=== PATIENT | female | born 1960 | race Caucasian/White ===

== ENCOUNTER → 2020-04-16 | Day surgery (SDC) | payer BC ==
[2020-04-14 12:05] VITALS: BMI 22.3
[~2020-04-16] MED LIST: LACTATED RINGERS 1,000 ML IV SCH; LIDOCAINE 1% (10MG/ML) FOR IV START INTRADERMA ONE; PROPOFOL 10 MG/ML 20 ML VIAL IV ONE
[2020-04-16 12:07] VITALS: TEMP 98.5
--- NOTE | 2020-04-16 13:23 | P.PCN ---
Date of Procedure: 04/16/20 Procedure(s) Performed: BRIEF HISTORY: Patient is a 59-year-old pleasant female scheduled for an elective colonoscopy as a part of value should change in bowel habits. She is been having frequent bowel movements cramping lower abdominal pain since January of last year. PROCEDURE PERFORMED: Incomplete colonoscopy with biopsy and snare polyp rectum PREOPERATIVE DIAGNOSIS: Change in bowel habits with lower abdominal pain. IV sedation per Anesthesia. PROCEDURE: After informed consent was obtained, the patient, was brought into the endoscopy unit. IV sedation was administered by Anesthesia under continuous monitoring. Digital rectal examination was normal. Initially the Olympus CF-160 flexible video colonoscope was then inserted in the rectum, gradually advanced into the rectosigmoid colon and at 18 cm from the anal verge there was a circumferential near obstructing ulcerated mass noted. The scope was removed and a pediatric colonoscope was then passed into the rectum and despite multiple attempts I was not able to pass the scope through the mass because of significant luminal narrowing. At this time multiple biopsies were done from the mass. In the rectum there was a 5 mm and 7 mm distal rectal polyps noted which were removed by snare polypectomy. Retroflexion was performed in the rectum and internal hemorrhoids were seen. The patient tolerated the procedure well. IMPRESSION: Near obstructing circumferential ulcerated rectosigmoid mass at 18 cm from the anal verge status post multiple biopsies 5 mm and 7 mm distal rectal polyp status post polypectomy Scope could not be advanced through the ulcerated mass RECOMMENDATIONS: Findings of this examination were discussed with the patient is well as her family. She was advised to follow with the biopsy results. She'll be seen in office in one week. She will be scheduled for CT of abdomen and pelvis early next week...
[2020-04-16 13:27] VITALS: RESP 17
[2020-04-16 13:42] VITALS: BP 163/74; PULSE 84
== END ==
LOC: ORWHC2ENDO 11:35
PROVIDERS: ATTEND Internal Medicine Gastroenterology
DX: C19 Malignant neoplasm of rectosigmoid junction (principal); D12.8 Benign neoplasm of rectum; K63.9 Disease of intestine, unspecified; K63.3 Ulcer of intestine; I10 Essential (primary) hypertension; Z88.2 Allergy status to sulfonamides; Z79.899 Other long term (current) drug therapy; Z91.040 Latex allergy status; Z87.891 Personal history of nicotine dependence; Z87.898 Personal history of other specified conditions
CPT/HCPCS: 45338; 45331; 88305; J2704; 45380; 45385

== ENCOUNTER → 2020-04-19 | Outpatient (CLI) | payer BC ==
--- NOTE | 2020-04-19 10:06 | CT ---
EXAMINATION TYPE: CT abdomen pelvis w con DATE OF EXAM: 04/19/2020 HISTORY: Recto-sigmoid mass, presumed abnormal colonoscopy. CT DLP: 351.80mGycm Automated Exposure Control for Dose Reduction was Utilized. CONTRAST: CT scan of the abdomen and pelvis is performed with oral and with IV Contrast, patient injected with 100 ml mL of Isovue 300. COMPARISON: None. FINDINGS: LUNG BASES: No significant abnormality is appreciated. LIVER/GB: Intraluminal gallstones are present. No surrounding inflammatory change. Mild hepatomegaly. PANCREAS: No significant abnormality is seen. SPLEEN: No significant abnormality is seen. ADRENALS: No significant abnormality is seen. KIDNEYS: Symmetric cortical medullary uptake and excretion without hydronephrosis seen bilaterally. L eft-sided simple-appearing Central parapelvic cysts are noted. BOWEL: Oral contrast reaches the transverse colon level. No suspicious small or large bowel dilatatio n. There is moderate to severe concentric wall thickening with irregular mucosal heterogeneity or enh ancement involving sigmoid rectal junction and distal sigmoid colon seen best coronal image 52 for re ference. Some adjacent prominent but tiny lymph nodes are noted for reference 6 mm lymph node left as pect axial image 51. Length of neoplasm may be up to 9 cm. No significant proximal dilatation or obst ruction. Patient has little intra-abdominal fat. Nonopacified bowel loop left periaortic region is fe lt present UTERUS/ADNEXA: Anteverted uterus . There is 3.6 x 3.5 cm round well-circumscribed low dense lesion le ft pelvis collection is 59 presumed simple thin-walled ovarian cyst. LYMPH NODES: No greater than 1cm abdominal or pelvic lymph nodes are appreciated. OSSEOUS STRUCTURES: Moderate disc space narrowing with vacuum disc phenomenon L5-S1 level. OTHER: Mild calcified plaque of the aorta extends into branch vessels. IMPRESSION: 1. Visualization of known neoplasm sigmoid rectal junction with involvement of the distal sigmoid col on. Few adjacent suspicious subcentimeter lymph nodes. No CT evidence for metastatic disease. 2. There is 3.6 cm low dense left pelvic lesion probable ovarian cyst or cystic lesion, follow-up pel minnie ultrasound advised to further evaluate. Lesion not noted on February 15, 2015 pelvic ultrasound re port
== END | disposition home or self-care (01) ==
LOC: RADCTMAIN 07:57
PROVIDERS: ATTEND Internal Medicine Gastroenterology
DX: D49.0 Neoplasm of unspecified behavior of digestive system (principal); N94.89 Other specified conditions associated with female genital organs and menstrual cycle
CPT/HCPCS: 74177; Q9967

== ENCOUNTER → 2020-04-23 | Outpatient (CLI) | payer BC ==
[2020-04-23 19:28] LABS: African American GFR (CKD) 81.1 (60.0-200.0)
[2020-04-23 20:05] LABS: Cancer Antigen 125 12.5 U/mL (0.0-30.1)
== END | disposition home or self-care (01) ==
LOC: LABWHC1 11:42
PROVIDERS: ATTEND Surgery
DX: C18.7 Malignant neoplasm of sigmoid colon (principal)
CPT/HCPCS: 36415; 82378; 82565; 84520; 86304

== ENCOUNTER → 2020-04-26 | Outpatient (CLI) | payer BC ==
--- NOTE | 2020-04-27 04:36 | CT ---
EXAMINATION TYPE: CT chest w con DATE OF EXAM: 04/26/2020 COMPARISON: None HISTORY: Malignant neoplasm sigmoid colon CT DLP: 120.30 mGycm Automated exposure control for dose reduction was used. CONTRAST: Performed with IV Contrast, patient injected with 100 mL of Isovue 300. Images obtained from the thoracic inlet to the diaphragm with IV contrast. The lungs are clear of infiltrate. There is no evidence of a pulmonary mass. There is no mediastinal adenopathy. There are no hilar masses. Heart size is normal. There is no adrenal mass. Upper abdomina l soft tissues are intact. Thoracic vertebra show normal alignment. There is no compression fracture. Sternum is intact. The rib s appear intact. IMPRESSION: Negative CT scan of the chest. No evidence of metastatic disease.
== END | disposition home or self-care (01) ==
LOC: RADCTMAIN 18:50
PROVIDERS: ATTEND Surgery
DX: C18.7 Malignant neoplasm of sigmoid colon (principal)
CPT/HCPCS: 71260; Q9967

== ENCOUNTER 2020-06-07 06:31 | Day surgery (SDC) | payer BC ==
[2020-06-03 15:27] VITALS: BMI 21.4
--- NOTE | 2020-06-04 12:42 | P.GSHP ---
History of Present Illness H&P Date: 06/04/20 Chief Complaint: Rectosigmoid cancer 59-year-old female underwent recent surgical resection for a T4 rectosigmoid cancer. Doing well at this time. We'll begin chemotherapy in 1 week or so. Here today for Port-A-Cath placement. Past Medical History Past Medical History: Cancer, Hypertension Additional Past Medical History / Comment(s): started in January 2020 irregular stools with cramping, Dx. with colon cancer. History of Any Multi-Drug Resistant Organisms: None Reported Past Surgical History: Adenoidectomy, Tonsillectomy Additional Past Surgical History / Comment(s): D&C, Robotic colon surgery, oopherectomy. Past Anesthesia/Blood Transfusion Reactions: Motion Sickness Additional Past Anesthesia/Blood Transfusion Reaction / Comment(s): no hx blood transfusion Smoking Status: Former smoker - Past Family History Father Family Medical History: Coronary Artery Disease (CAD) Additional Family Medical History / Comment(s): CABG Mother Family Medical History: Cancer Additional Family Medical History / Comment(s): breast CA Medications and Allergies Home Medications Medication Instructions Recorded Confirmed Type Calcium Carbonate [Calcium] 600 mg PO DAILY 04/14/20 06/03/20 History Cholecalciferol (Vitamin D3) 125 mcg PO DAILY 04/14/20 06/03/20 History [Vitamin D3] Vitamin B Complex 1 each PO DAILY 04/14/20 06/03/20 History Vitamin C/Biotin [Hair, Skin and 1 tab PO DAILY 04/14/20 06/03/20 History Nails] Allergies Allergy/AdvReac Type Severity Reaction Status Date / Time latex Allergy Itching,leta Verified 06/03/20 15:14 h Sulfa (Sulfonamide Allergy Rash/Hives Verified 06/03/20 15:14 Antibiotics) Surgical - Exam Physical exam: General: Well-developed, well-nourished HEENT: Normocephalic, sclerae nonicteric Abdomen: Nontender, nondistended Extremities: No edema Neuro: Alert and oriented Assessment and Plan (1) Colon cancer Narrative/Plan: Will proceed with Port-A-Cath placement at this time. Risks of bleeding, infection, DVT, pneumothorax, catheter malfunction, anesthesia related complications were discussed. The patient understands and wishes to proceed. Status: Acute Code(s): C18.9 - MALIGNANT NEOPLASM OF COLON, UNSPECIFIED SNOMED Code(s): 640264068
[~2020-06-07 06:31] MED LIST changes: +ACETAMINOPHEN TAB 500 MG TAB PO PRN; +DEXAMETHASONE SOD PHOSPHATE 4 MG/ML 1 ML VIAL IV ONE; +HEPARIN SODIUM,PORCINE 5,000 UNIT/ML 1 ML VIAL SQ PRN; +HYDROmorphone 0.5 MG/0.5 ML SYRINGE IVP PRN; -LIDOCAINE 1% (10MG/ML) FOR IV START INTRADERMA ONE; +LIDOCAINE 1% (10MG/ML) FOR IV START INTRADERMA PRN; +ONDANSETRON 4 MG/2 ML VIAL IVP ONE; -PROPOFOL 10 MG/ML 20 ML VIAL IV ONE; +Pre Op ABX Message 1 EACH MISC MISCELLANE ONE
[2020-06-07 06:50] VITALS: TEMP 98.3
[2020-06-07] MEDS ORDERED: SCOPOLAMINE 1.5MG/72HR PATCH TRANSDERM ONE (07:11)
[2020-06-07] MEDS ORDERED: MIDAZOLAM 2 MG/2 ML VIAL ONE (07:45)
[2020-06-07] MEDS ORDERED: ePHEDrine SULFATE/0.9% NACL/PF 50 MG/5 ML SYRINGE IV ONE (07:45)
[2020-06-07] MEDS ORDERED: LIDOCAINE 1% INJ 10MG/ML (20 ML MDV) ONE (07:45)
[2020-06-07] MEDS ORDERED: PROPOFOL 10 MG/ML 20 ML VIAL IV ONE (07:45)
[2020-06-07] MEDS ORDERED: fentaNYL (PF) 50 MCG/ML 2 ML AMP ONE (07:45)
[2020-06-07] MEDS ORDERED: LIDOCAINE 1% INJ 10MG/ML (20 ML MDV) SQ ONE (07:52)
[2020-06-07] MEDS ORDERED: ceFAZolin 1,000 MG VIAL IVPB ONE (07:53)
[2020-06-07] MEDS ORDERED: NALOXONE 0.4 MG/ML 1 ML VIAL IV PRN (08:38)
--- NOTE | 2020-06-07 08:39 | P.OP ---
Date of Procedure: 06/07/20 Procedure(s) Performed: PREOPERATIVE DIAGNOSIS: Colon cancer POSTOPERATIVE DIAGNOSIS: Same PROCEDURE: Port-A-Cath placement with fluoroscopic and ultrasound guidance SURGEON: Radhames EBL: Minimal ANESTHESIA: Sedation COMPLICATIONS: None OPERATIVE PROCEDURE: Patient was brought and placed on the operative table in the supine position. The patient was sedated per anesthesia that time. The chest and neck were prepped and draped in usual sterile fashion. The ultrasound probe was used to identify the location of the right internal jugular vein. The skin was localized with lidocaine. The Seldinger needle was advanced into the IJ under ultrasound guidance. The wire was advanced through the needle under fluoroscopic guidance into the superior vena cava. A port pocket was created in the right infraclavicular location. The catheter was tunneled from the wire entrance site to the port pocket. The port was then connected to the catheter. The dilator introducer was threaded over the guidewire. The guidewire and dilator were then removed. The catheter was advanced through the introducer and introducer was then removed. The tip was seen to be in the right atrial junction via fluoroscopy. A picture of the radiograph showing the tip at the radial digital junction was taken. Port was flushed with both saline and a Hep- Lock solution. There was good flow both in and out of the port. The port was sutured in underlying tissues using 3-0 silk sutures. The subcutaneous tissues were reapproximated using 3-0 Vicryl sutures and the skin at both locations using 4-0 Monocryl sutures. Skin glue and sterile dressings then applied. DISPOSITION: Stable to recovery room
[2020-06-07 09:03] VITALS: RESP 14
--- NOTE | 2020-06-07 09:08 | XR ---
EXAMINATION TYPE: XR chest 1V confirm line [facility] DATE OF EXAM: 06/07/2020 COMPARISON: Chest CT April 26, 2020. HISTORY: Colon cancer. MediPort catheter insertion. TECHNIQUE: Single AP portable frontal upright view of the chest is obtained. FINDINGS: There is new right internal jugular Mediport catheter terminating in SVC. There is no foca l air space opacity, pleural effusion, or pneumothorax seen. The cardiac silhouette size remains wit hin normal limits. The osseous structures are intact. Overlying EKG leads are present. IMPRESSION: New right Internal jugular Mediport catheter terminating in SVC. No pneumothorax seen. L ungs remain clear.
--- NOTE | 2020-06-07 09:09 | FL ---
EXAMINATION TYPE: FL guided central line placemt DATE OF EXAM: 06/07/2020 CLINICAL HISTORY: Colon cancer TECHNIQUE: Fluoroscopy. COMPARISON: None. FINDINGS: Fluoroscopic guidance was provided during Mediport catheter insertion procedure performed by Dr. Ricci. A total of 5 seconds of fluoroscopic time was utilized during the procedure and 2 spot images was acquired. Images acquired show portions of right internal jugular central venous catheter and guidewire, satisfactory positioning is felt present. IMPRESSION: As Above.
[2020-06-07 09:32] VITALS: BP 144/78; PULSE 75
== END 2020-06-07 09:47 | disposition home or self-care (01) ==
LOC: OR 06:31
PROVIDERS: ATTEND Surgery
DX: C19 Malignant neoplasm of rectosigmoid junction (principal); I10 Essential (primary) hypertension; Z90.89 Acquired absence of other organs; Z87.891 Personal history of nicotine dependence; Z82.49 Family history of ischemic heart disease and other diseases of the circulatory system; Z80.3 Family history of malignant neoplasm of breast; Z88.2 Allergy status to sulfonamides; Z91.040 Latex allergy status; F41.9 Anxiety disorder, unspecified; Z90.49 Acquired absence of other specified parts of digestive tract
CPT/HCPCS: 77001; 36561; 76937; C1788; J2250; J1644; J1100; J2405; J0690; J2001; J3010; J1642; J2704

== ENCOUNTER → 2020-11-16 | Outpatient (CLI) | payer BC ==
[2020-11-16 10:49] LABS: Appearance,Urine Clear (Clear); Bilirubin,Urine Negative (Negative); Blood,Urine Small (Negative); Color,Urine Light Yellow; Glucose,Urine (UA) Negative (Negative); Ketones,Urine Negative (Negative); Leukocyte Esterase,Urine Negative (Negative); Nitrite,Urine Negative (Negative); PH, Urine 6.5 (5.0-8.0); Protein,Urine Negative (Negative); RBC,Urine <1 /hpf (0-5); Specific Gravity,Urine 1.003 (1.001-1.035); Urobilinogen,Urine <2.0 mg/dL (<2.0); WBC,Urine <1 /hpf (0-5)
[2020-11-16 15:44] LABS: HCT 37.4 % (37.2-46.3); HGB 12.4 g/dL (12.0-15.0); MCHC 33.2 g/dL (32.0-37.0); MCV 99.5 fL (80.0-97.0); Mean Platelet Volume 10.1 fL (9.5-12.2); Platelet Count 256 X 10*3/uL (140-440); RBC 3.76 X 10*6/uL (4.10-5.20); RDW 19.5 % (11.5-14.5); WBC 6.12 X 10*3/uL (4.50-10.00)
[2020-11-16 17:04] LABS: Basophils # (A) 0.09 X 10*3/uL (0.00-0.10); Basophils % (A) 1.5 %; Eosinophils # (A) 0.13 X 10*3/uL (0.04-0.35); Eosinophils % (A) 2.1 %; Lymphocytes # (A) 0.41 X 10*3/uL (0.90-5.00); Lymphocytes % (A) 6.7 %; Monocytes # (A) 1.42 X 10*3/uL (0.20-1.00); Monocytes % (A) 23.2 %; Neutrophils # (A) 3.87 X 10*3/uL (1.80-7.70); Neutrophils % (A) 63.2 %
[2020-11-16 21:23] LABS: African American GFR (CKD) 109.9 (60.0-200.0); Anion Gap 11.6 mmol/L (4.00-12.00); BUN/Creat Ratio 12.86 Ratio (12.00-20.00); Calcium 8.1 mg/dL (8.7-10.3); Carbon Dioxide 27.4 mmol/L (21.6-31.8); Non-African American GFR(CKD) 94.8 (60.0-200.0); Potassium 3.2 mmol/L (3.5-5.5)
== END | disposition home or self-care (01) ==
LOC: LABWHC1 08:25
PROVIDERS: ATTEND Radiology Radiation Oncology
DX: C20 Malignant neoplasm of rectum (principal); Z92.21 Personal history of antineoplastic chemotherapy
CPT/HCPCS: 36415; 80048; 81001; 82150; 83690; 85025; 87086

== ENCOUNTER 2021-01-28 10:43 | Day surgery (SDC) | payer BC ==
[2021-01-26 12:18] VITALS: BMI 24.1
[~2021-01-28 10:43] MED LIST changes: -HEPARIN SODIUM,PORCINE 5,000 UNIT/ML 1 ML VIAL SQ PRN; +HEPARIN SODIUM,PORCINE/PF 5,000 UNIT/0.5 ML SYRINGE SQ PRN; -LIDOCAINE 1% (10MG/ML) FOR IV START INTRADERMA PRN; -Pre Op ABX Message 1 EACH MISC MISCELLANE ONE
[2021-01-28 11:01] VITALS: RESP 16; TEMP 97.5
[2021-01-28] MEDS ORDERED: LIDOCAINE 1% (10MG/ML) FOR IV START INTRADERMA ONE (11:08)
[2021-01-28] MEDS ORDERED: fentaNYL (PF) 50 MCG/ML 2 ML AMP ONE (11:21)
[2021-01-28] MEDS ORDERED: PROPOFOL 10 MG/ML 20 ML VIAL IV ONE (11:21)
[2021-01-28] MEDS ORDERED: MIDAZOLAM 2 MG/2 ML VIAL ONE (11:21)
--- NOTE | 2021-01-28 11:23 | P.GSHP ---
History of Present Illness H&P Date: 01/28/21 Chief Complaint: Colorectal cancer 60-year-old female here today for Port-A-Cath removal. Patient underwent Port-A-Cath placement in April. She has not used it since September. No issues with the port. Past Medical History Past Medical History: Cancer, GERD/Reflux, Hypertension Additional Past Medical History / Comment(s): Dx. with colorectal cancer in April-finished radiation 11-24-20, & had chemo-finished in September, used to take BP medication-not needed currently, neuropathy hands & feet, had cyst aspirated yesterday by Dr. Wright from wrist-wearing splint currently History of Any Multi-Drug Resistant Organisms: None Reported Past Surgical History: Adenoidectomy, Bowel Resection, Tonsillectomy Additional Past Surgical History / Comment(s): D&C, Robotic colon surgery, oopherectomy, port-a-cath insertion Past Anesthesia/Blood Transfusion Reactions: Motion Sickness Additional Past Anesthesia/Blood Transfusion Reaction / Comment(s): no hx blood transfusion Smoking Status: Former smoker - Past Family History Father Family Medical History: Coronary Artery Disease (CAD) Additional Family Medical History / Comment(s): CABG Mother Family Medical History: Cancer Additional Family Medical History / Comment(s): breast CA Medications and Allergies Home Medications Medication Instructions Recorded Confirmed Type Calcium Carbonate [Calcium] 600 mg PO DAILY 04/14/20 01/26/21 History Cholecalciferol (Vitamin D3) 125 mcg PO DAILY 04/14/20 01/26/21 History [Vitamin D3] Vitamin B Complex 1 each PO DAILY 04/14/20 01/26/21 History Vitamin C/Biotin [Hair, Skin and 1 tab PO DAILY 04/14/20 01/26/21 History Nails] Cyanocobalamin (Vitamin B-12) 1,000 mcg PO DAILY 01/26/21 01/26/21 History [Vitamin B-12] Gabapentin [Neurontin] 600 mg PO TID 01/26/21 01/26/21 History Omeprazole [PriLOSEC] 40 mg PO DAILY 01/26/21 01/26/21 History Allergies Allergy/AdvReac Type Severity Reaction Status Date / Time latex Allergy Itching,leta Verified 01/28/21 10:53 h Sulfa (Sulfonamide Allergy Rash/Hives Verified 10/22/21 10:53 Antibiotics) Surgical - Exam Vital Signs Temp Pulse Resp BP Pulse Ox 97.5 F L 74 16 172/77 98 01/28/21 10:59 01/28/21 10:59 01/28/21 10:59 01/28/21 10:59 01/28/21 10:59 Physical exam: General: Well-developed, well-nourished HEENT: Normocephalic, sclerae nonicteric Abdomen: Nontender, nondistended Extremities: No edema Neuro: Alert and oriented Right chest wall Port-A-Cath in place Assessment and Plan (1) Colon cancer Narrative/Plan: Will proceed with Port-A-Cath removal of this time. Current Visit: No Status: Acute Code(s): C18.9 - MALIGNANT NEOPLASM OF COLON, UNSPECIFIED SNOMED Code(s): 896488882
[2021-01-28] MEDS ORDERED: LIDOCAINE 1% INJ 10MG/ML (20 ML MDV) SQ ONE ×2 (11:42)
[2021-01-28] MEDS ORDERED: NALOXONE 0.4 MG/ML 1 ML VIAL IV PRN (12:02)
--- NOTE | 2021-01-28 12:03 | P.OP ---
Date of Procedure: 01/28/21 Procedure(s) Performed: PREOPERATIVE DIAGNOSIS: Colorectal cancer POSTOPERATIVE DIAGNOSIS: Same PROCEDURE: Port-A-Cath removal SURGEON: Radhames EBL: Minimal ANESTHESIA: Sedation COMPLICATIONS: None OPERATIVE PROCEDURE: Patient was placed in the supine position. The patient was sedated per anesthesia that time. The chest was prepped and draped in the usual sterile fashion. The skin was localized with Marcaine solution. The previous incision was re-incised using a scalpel. The port was easily excised using accommodation of blunt dissection sharp dissection and electrocautery. The subcutaneous tissues were reapproximated using 3-0 Vicryl sutures. The skin was reapproximated using 4-0 Monocryl sutures. Skin glue was then applied. DISPOSITION: Stable to recovery room
[2021-01-28 12:17] VITALS: PULSE 75
[2021-01-28 12:24] VITALS: BP 129/71
== END 2021-01-28 12:35 | disposition home or self-care (01) ==
LOC: OR 10:43
PROVIDERS: ATTEND Surgery
DX: Z45.2 Encounter for adjustment and management of vascular access device (principal); C18.9 Malignant neoplasm of colon, unspecified; Z92.21 Personal history of antineoplastic chemotherapy; Z92.3 Personal history of irradiation; I10 Essential (primary) hypertension; K21.9 Gastro-esophageal reflux disease without esophagitis; Z87.891 Personal history of nicotine dependence; Z80.3 Family history of malignant neoplasm of breast; Z80.0 Family history of malignant neoplasm of digestive organs; G62.9 Polyneuropathy, unspecified; Z79.899 Other long term (current) drug therapy; Z88.2 Allergy status to sulfonamides; Z91.040 Latex allergy status
CPT/HCPCS: 36589; J2250; J1100; J0690; J2405; J2001; J3010; J2704; J1644

== ENCOUNTER → 2021-01-31 | Outpatient (CLI) | payer BC ==
--- NOTE | 2021-01-31 13:37 | BD ---
EXAMINATION TYPE: Axial Bone Density DATE OF EXAM: 01/31/2021 COMPARISON: NONE CLINICAL HISTORY: 60 YR OLD FEMALE.....ICD-10 CODE: Z78.0 POST MENOPAUSAL Height: Weight: FRAX RISK QUESTIONS: NOTHING TO NOTE HERE RISK FACTORS HISTORY OF: Postmenopausal woman: YES, AT 51 YRS OLD Hyperparathyroidism: NO Adrenal Insufficiency: NO MEDICATIONS: Additional Medications: HX OF CHEMO AND RADIATION, FOR COLO-RECTAL CA, REFLUX, VIT D AND CALCIUM Additional History: COLO-RECTAL CA, REFLUX EXAM MEASUREMENTS: Bone mineral densitometry was performed using the [employer] System. Bone mineral density as measured about the Lumbar spine is: ----- L1-L4(G/cm2): 1.222 T Score Values are as follows: ----- L1: -0.2 ----- L2: -0.1 ----- L3: 0.7 ----- L4: 0.8 ----- L1-L4: 0.3 Bone mineral density FIRST DEXA SCAN.......BASELINE STUDY Bone mineral density about the R hip (g/cm2): 0.999 Bone mineral density about the L hip (g/cm2): 0.939 T Score values are as follows: -----R Neck: -1.1 -----L Neck: -1.6 -----R Total: -0.1 -----L Total: -0.5 Bone mineral density BASELINE STUDY FRAX%s: THERE IS A 8.0% CHANCE FOR A MAJOR OSTEOPOROTIC FX AND A 0.8% FOR HIP......PROBABILITY FOR FX IN 10 YRS TIME IMPRESSION: No evidence for osteoporosis or osteopenia NOTE: T-SCORE=SD OF THE YOUNG ADULT MEAN.
== END | disposition home or self-care (01) ==
LOC: RADBDWWP 07:20
PROVIDERS: ATTEND Family Medicine
DX: M85.89 Other specified disorders of bone density and structure, multiple sites (principal); Z78.0 Asymptomatic menopausal state
CPT/HCPCS: 77080

== ENCOUNTER → 2021-02-01 | Outpatient (CLI) | payer BC ==
--- NOTE | 2021-02-02 10:36 | MM ---
Reason for exam: screening (asymptomatic). Last mammogram was performed 3 years and 11 months ago. History: Patient is postmenopausal, has history of colon cancer at age 60, and had first child at age 31. Family history of breast cancer in mother at age 71. Took hormonal contraceptives for 11 years beginning at age 35. Physical Findings: A clinical breast exam by your physician is recommended on an annual basis and results should be correlated with mammographic findings. MG Screening Mammo w CAD Bilateral CC and MLO view(s) were taken. Prior study comparison: March 15, 2017, right breast MG work up mamm w CAD RT. March 09, 2017, bilateral MG screening mammo w CAD. The breast tissue is extremely dense which could obscure a lesion on mammography. There is no discrete abnormality. No significant changes when compared with prior studies. ASSESSMENT: Negative, BI-RAD 1 RECOMMENDATION: Routine screening mammogram of both breasts in 1 year.
== END | disposition home or self-care (01) ==
LOC: RADMAMWWP 07:07
PROVIDERS: ATTEND Family Medicine
DX: Z12.31 Encounter for screening mammogram for malignant neoplasm of breast (principal); Z80.3 Family history of malignant neoplasm of breast; Z78.0 Asymptomatic menopausal state; Z85.038 Personal history of other malignant neoplasm of large intestine
CPT/HCPCS: 77067

== ENCOUNTER → 2021-02-02 | Outpatient (CLI) | payer BC ==
--- NOTE | 2021-02-03 07:34 | CT ---
EXAMINATION TYPE: CT ChestAbdPelvis w con DATE OF EXAM: 02/02/2021 COMPARISON: Chest CT April 26, 2020. CT abdomen and pelvis April 19, 2020. HISTORY: f/u colorectal ca CT DLP: 556.9 mGycm. Automated Exposure Control for Dose Reduction was Utilized. CONTRAST: CT scan of the thorax, abdomen and pelvis is performed with IV Contrast, patient injected with 100 mL of Isovue 300. FINDINGS: LUNGS: Focal linear scarring right mid to lower lung centrally on axial image 28 just below the fissu re is redemonstrated. No new greater than 5 mm pulmonary nodules or masses There is no pleural effus ion or pneumothorax seen. The tracheobronchial tree is patent. MEDIASTINUM: There are no greater than 1 cm hilar or mediastinal lymph nodes. No cardiomegaly or pe ricardial effusion is seen. Coronary artery calcification redemonstrated. OTHER: Near 1.0 cm hypodense right thyroid nodule axial image 6 is stable. LIVER/GB: Intraluminal gallstones is somewhat contracted gallbladder. With no surrounding inflammator y change. Heterogeneous liver without biliary dilatation. PANCREAS: No significant abnormality is seen. SPLEEN: No significant abnormality is seen. ADRENALS: Stable nonspecific thickening to both adrenal glands. KIDNEYS: Symmetric cortical medullary uptake and excretion without hydronephrosis seen bilaterally. C entral left-sided simple appearing parapelvic cysts are redemonstrated. BOWEL: Oral contrast does not reach level of terminal ileum making evaluation of distal bowel slightl y suboptimal. Interval surgery at level of sigmoid rectal colon with no sutures axial image 99. Patie nt once again noted to have little intra-abdominal fat. No suspicious small or large bowel dilatation . Moderate amount of fecal material in the right transverse and left colon. Single small bowel loop i n the right pelvis is [id number] wall thickening and mucosal enhancement, for reference axial i mage 93 UTERUS/ADNEXA: Anteverted uterus redemonstrated . Interval resolution of 3.5 cm cyst or cystic lesion left pelvis. LYMPH NODES: No definitive new greater than 1cm abdominal or pelvic lymph nodes are appreciated. OSSEOUS STRUCTURES: Moderate to severe disc space narrowing with vacuum disc phenomenon L5-S1 level i s redemonstrated. Facet arthropathy lower lumbar spine. OTHER: Mild calcified plaque of the aorta extends into branch vessels. IMPRESSION: Interval partial distal colectomy and anastomosis without suspicious mass or adenopathy to suggest re sidual or metastatic neoplasm. Cannot exclude a focal enteritis involving distal small bowel loop in the right pelvis. Correlate clinically. Overall nonobstructive bowel gas pattern. Moderate colonic fe shashank stasis is present however.
== END | disposition home or self-care (01) ==
LOC: RADCTMAIN 17:16
PROVIDERS: ATTEND Internal Medicine Hematology & Oncology
DX: Z85.038 Personal history of other malignant neoplasm of large intestine (principal); Z90.49 Acquired absence of other specified parts of digestive tract
CPT/HCPCS: 71260; 74177; Q9967

== ENCOUNTER 2021-02-11 07:32 | Day surgery (SDC) | payer BC ==
[2021-02-09 09:02] VITALS: BMI 23.8
[~2021-02-11 07:32] MED LIST changes: -ACETAMINOPHEN TAB 500 MG TAB PO PRN; -DEXAMETHASONE SOD PHOSPHATE 4 MG/ML 1 ML VIAL IV ONE; -HEPARIN SODIUM,PORCINE/PF 5,000 UNIT/0.5 ML SYRINGE SQ PRN; -HYDROmorphone 0.5 MG/0.5 ML SYRINGE IVP PRN; +LIDOCAINE 1% (10MG/ML) FOR IV START INTRADERMA PRN; -ONDANSETRON 4 MG/2 ML VIAL IVP ONE
[2021-02-11 08:13] VITALS: TEMP 97.4
[2021-02-11] MEDS ORDERED: PROPOFOL 10 MG/ML 20 ML VIAL IV ONE (08:53)
--- NOTE | 2021-02-11 09:32 | P.PCN ---
Date of Procedure: 02/11/21 Procedure(s) Performed: BRIEF HISTORY: Patient is a 60-year-old pleasant white female scheduled for an elective colonoscopy as a part of follow-up rectal cancer diagnosed was diagnosed in April 2020.. She hasn't yet obstructing proximal rectal mass and the scope could not be advanced beyond the mass. She underwent neoadjuvant radiation and chemo therapy followed by surgery. She is scheduled for surveillance colonoscopy to evaluate the rest of the colon PROCEDURE PERFORMED: Colonoscopy. PREOPERATIVE DIAGNOSIS: Follow-up rectal cancer diagnosed in April 2020 status post the adjuvant chemoradiation followed by surgery. IV sedation per Anesthesia. PROCEDURE: After informed consent was obtained, the patient, was brought into the endoscopy unit. IV sedation was administered by Anesthesia under continuous monitoring. Digital rectal examination was normal. Initially the Olympus CF-160 flexible video colonoscope was then inserted in the rectum, gradually advanced into the cecum without any difficulty. Careful examination was performed as the scope was gradually being withdrawn. Ileocecal valve and the appendiceal orifice were visualized and appeared normal. Prep was excellent. Mucosa of the cecum, ascending colon, transverse colon, descending colon, sigmoid colon, appeared normal. As was his was located at 6 cm from the anal verge that had circumferential erythema. The patient tolerated the procedure well. IMPRESSION: Normal-appearing colon from rectum to cecum with no evidence of colorectal neoplasia Anastomosis at 20 cm from the anal verge that had circumferential erythema with mild narrowing but no evidence of colorectal neoplasia . RECOMMENDATIONS: Findings of this examination were discussed with the patient as well as her family. She was advised to have a repeat surveillance colonoscopy in one to 2 years.
[2021-02-11 09:43] VITALS: BP 154/86; PULSE 69; RESP 20
== END 2021-02-11 10:08 | disposition home or self-care (01) ==
LOC: ORWHC2ENDO 07:32
PROVIDERS: ATTEND Internal Medicine Gastroenterology
DX: Z12.11 Encounter for screening for malignant neoplasm of colon (principal); Z85.048 Personal history of other malignant neoplasm of rectum, rectosigmoid junction, and anus
CPT/HCPCS: 45378; J2704

== ENCOUNTER → 2022-02-10 | Outpatient (CLI) | payer BC ==
[2022-02-10 11:02] LABS: African American GFR (CKD) >90 (>60 ml/min/1.73 sqM); Blood Urea Nitrogen 12 mg/dL (7-17); Non-African American GFR(CKD) 85 (>60 ml/min/1.73 sqM)
--- NOTE | 2022-02-10 11:39 | CT ---
EXAMINATION TYPE: CT ChestAbdPelvis w con DATE OF EXAM: 02/10/2022 COMPARISON: 02/02/2021 HISTORY: Follow up for neoplasm of rectosigmoid junction. CT DLP: 1421 mGycm CONTRAST: CT scan of the chest, abdomen and pelvis is performed with Oral Contrast and with IV Contrast, patien t injected with 70ml mL of Isovue 300. CT Chest: LUNGS: The lungs are clear and free of infiltrate or atelectasis. No pulmonary nodule or mass is det ected. No pleural effusion or CT evidence of interstitial lung disease. MEDIASTINUM: Thoracic aorta is of normal caliber. The heart is not enlarged. No evidence for media stinal mass or adenopathy. HILAR STRUCTURES: No evidence for mass. No hilar adenopathy is appreciated. OTHER: No significant abnormality. CONTRAST CT ABDOMEN AND PELVIS FINDINGS: LIVER/GB: Cholelithiasis redemonstrated. No space occupying hepatic lesion. Biliary tree is of normal caliber. PANCREAS: No inflammation. No distinct mass. SPLEEN: No splenic enlargement. No lesion seen. ADRENALS: No nodule. No thickening. KIDNEYS/BLADDER: No hydronephrosis. No nephrolithiasis. No distinct renal mass. BOWEL: Normal appendix. Ring of sutures at the rectosigmoid junction redemonstrated. No evidence for recurrent mass. Small and large bowel are of normal caliber. Mild fecal stasis. Normal bowel caliber . No inflammation. GENITAL ORGANS: No gross abnormality. LYMPH NODES: No greater than 1cm abdominal or pelvic lymph nodes are appreciated. AORTA: No significant abnormality. OSSEOUS STRUCTURES: No significant abnormality is seen. OTHER: No significant additional abnormality is seen. IMPRESSION: 1. No evidence for recurrent or residual disease. No evidence for metastatic disease. 2. Uncomplicated cholelithiasis.
== END | disposition home or self-care (01) ==
LOC: RADCTMAIN 08:56
PROVIDERS: ATTEND Internal Medicine Hematology & Oncology
DX: C19 Malignant neoplasm of rectosigmoid junction (principal); K80.20 Calculus of gallbladder without cholecystitis without obstruction
CPT/HCPCS: 82565; 84520; 71260; 74177; 36415; Q9967

== ENCOUNTER → 2022-02-17 | Outpatient (CLI) | payer BC ==
--- NOTE | 2022-02-20 07:43 | MM ---
Reason for Exam: Screening (asymptomatic). Last mammogram was performed 1 year(s) and 1 month(s) ago. Patient History: Menarche at age 13. First Full-Term at age 31. Late child-bearing (after 30). Left ovary removed at age 60. Right ovary removed at age 60. Postmenopausal. Colorectal cancer, age 60. Hormonal Contraceptives, starting at age 35 for 11 years. Mother had breast cancer, age 71. Risk Values: Mary 5 year model risk: 3.0%. NCI Lifetime model risk: 13.9%. Prior Study Comparison: 03/09/2017 Bilateral Screening Mammogram, [facility]. 03/15/2017 Right Diagnostic Mammogram, [facility]. 02/01/2021 Bilateral Screening Mammogram, [facility]. Tissue Density: The breast tissue is heterogeneously dense. This may lower the sensitivity of mammography. Findings: Analyzed By CAD. There is no suspicious group of microcalcifications or new suspicious mass in either breast. Overall Assessment: Negative, BI-RAD 1 Management: Screening Mammogram of both breasts in 1 year. Some consider bilateral breast ultrasound surveillance in patients with background dense tissue. A clinical breast exam by your physician is recommended on an annual basis and results should be correlated with mammographic findings. Electronically signed and approved by: Tin Luque M.D.
== END | disposition home or self-care (01) ==
LOC: RADMAMWWP 12:58
PROVIDERS: ATTEND Family Medicine
DX: Z12.31 Encounter for screening mammogram for malignant neoplasm of breast (principal); Z78.0 Asymptomatic menopausal state; Z80.3 Family history of malignant neoplasm of breast; Z90.721 Acquired absence of ovaries, unilateral
CPT/HCPCS: 77067

== ENCOUNTER → 2022-03-10 | Outpatient (CLI) | payer BC ==
[2022-03-10 14:31] LABS: Basophils # (A) 0.04 X 10*3/uL (0.00-0.10); Basophils % (A) 0.8 %; Eosinophils # (A) 0.41 X 10*3/uL (0.04-0.35); Eosinophils % (A) 8.2 %; HCT 41.6 % (37.2-46.3); HGB 13.2 g/dL (12.0-15.0); Immature Grans, Automated 0.2 %; Lymphocytes # (A) 1.37 X 10*3/uL (0.90-5.00); Lymphocytes % (A) 27.5 %; MCH 30.6 pg (27.0-32.0); MCHC 31.7 g/dL (32.0-37.0); MCV 96.5 fL (80.0-97.0); Mean Platelet Volume 11.5 fL (9.5-12.2); Monocytes # (A) 0.48 X 10*3/uL (0.20-1.00); Monocytes % (A) 9.6 %; NRBC Per 100 WBC 0 /100 WBCS (0.0-0.0); Neutrophils # (A) 2.68 X 10*3/uL (1.80-7.70); Neutrophils % (A) 53.7 %; Platelet Count 319 X 10*3/uL (140-440); RBC 4.31 X 10*6/uL (4.10-5.20); RDW 13.2 % (11.5-14.5); WBC 4.99 X 10*3/uL (4.50-10.00)
[2022-03-10 14:47] LABS: ALT 14 U/L (8-44); AST 24 U/L (13-35); African American GFR (CKD) 84.6 (60.0-200.0); Albumin/Globulin Ratio 1.44 (1.60-3.17); Alkaline Phosphatase 66 U/L (41-126); Blood Urea Nitrogen 12.8 mg/dL (9.0-27.0); Calcium 9.2 mg/dL (8.7-10.3); Carbon Dioxide 27.9 mmol/L (20.0-27.5); Chloride 107 mmol/L (96-109); Chol/HDL Ratio 2.88 Ratio; Globulin 2.8 g/dL (1.6-3.3); Glucose 86 mg/dL (70-110); LDL Cholesterol,Calculated 125.1 mg/dL (0.0-131.0); Potassium 4.6 mmol/L (3.5-5.5); Sodium 143 mmol/L (135-145); Total Protein 6.8 g/dL (6.2-8.2); VLDL Calculation 14.56 mg/dL (5.00-40.00)
== END | disposition home or self-care (01) ==
LOC: LABWHC1 07:16
PROVIDERS: ATTEND Family Medicine
DX: Z13.220 Encounter for screening for lipoid disorders (principal); Z13.29 Encounter for screening for other suspected endocrine disorder; I10 Essential (primary) hypertension
CPT/HCPCS: 36415; 80053; 80061; 84439; 84443; 85025

== ENCOUNTER → 2022-07-25 | Outpatient (CLI) | payer BC ==
--- NOTE | 2022-07-25 18:51 | XR ---
EXAMINATION TYPE: XR lumbosacral spine min 4V DATE OF EXAM: 07/25/2022 5:56 PM INDICATION: Patient age:Female; 61 years old; Reason for study: M54.31 SCIATICA, RIGHT SIDE; PHH. COMPARISON: CT chest abdomen pelvis 02/10/2022 TECHNIQUE: Frontal, lateral , bilateral oblique and coned in L5-S1 lateral views of the spine. FINDINGS: No evidence of any acute osseous pathology. No evidence of loss of vertebral body height i s seen. There is normal alignment of the lumbar vertebral bodies. Mild disc space narrowing with endp late sclerosis and anterior osteophytosis involving L5-S1. 7 mm calcification within the right upper quadrant which may represent gallstones and/or renal calculi. IMPRESSION: 1. No acute process. 2. Mild degenerative disc disease L5-S1. 3. Calcifications within the right upper quadrant representing gallstones and/or renal calculi.
== END | disposition home or self-care (01) ==
LOC: RADXRMAIN 17:41
PROVIDERS: ATTEND Family Medicine
DX: M51.17 Intervertebral disc disorders with radiculopathy, lumbosacral region (principal)
CPT/HCPCS: 72110

== ENCOUNTER → 2023-02-21 | Day surgery (SDC) | payer BC ==
[2023-02-19 13:08] VITALS: BMI 23.0
[~2023-02-21] MED LIST changes: -LACTATED RINGERS 1,000 ML IV SCH; -LIDOCAINE 1% (10MG/ML) FOR IV START INTRADERMA PRN; +LIDOCAINE 1% INJ 10MG/ML (20 ML MDV) ONE; +PROPOFOL 10 MG/ML 20 ML VIAL IV ONE
[2023-02-21] MEDS: LACTATED RINGERS 1,000 ML IV SCH ×2 (12:13→12:35)
[2023-02-21 12:25] VITALS: TEMP 99.2
--- NOTE | 2023-02-21 13:00 | P.PCN ---
Date of Procedure: 02/21/23 Procedure(s) Performed: BRIEF HISTORY: Patient is a 62-year-old pleasant white female scheduled for an elective colonoscopy as a part of surveillance of prior history of rectal cancer diagnosed in April 2020. She is status post neoadjuvant chemoradiation followed by surgery. Last colonoscopy was in February 2021 that was unremarkable. PROCEDURE PERFORMED: Colonoscopy. PREOPERATIVE DIAGNOSIS: Follow-up rectal cancer diagnosed in April 2020. IV sedation per Anesthesia. PROCEDURE: After informed consent was obtained, the patient, was brought into the endoscopy unit. IV sedation was administered by Anesthesia under continuous monitoring. Digital rectal examination was normal. Initially the Olympus CF-160 flexible video colonoscope was then inserted in the rectum, gradually advanced into the cecum without any difficulty. Careful examination was performed as the scope was gradually being withdrawn. Ileocecal valve and the appendiceal orifice were visualized and appeared normal. Prep was excellent. Mucosa of the cecum, ascending colon, transverse colon, descending colon, and rectum appeared normal. the anastomosis was located at 10 cm from the anal verge and appeared slightly narrowed with some erythema. Retroflexion was performed in the rectum and no lesions were seen. The patient tolerated the procedure well. IMPRESSION: Normal-appearing colon from rectum to cecum of colorectal neoplasia . Mild narrowing of the anastomosis at 10 cm from the anal verge RECOMMENDATIONS: Findings of this examination were discussed with the patient. She was advised to have a repeat screening colonoscopy in 2 years. .
[2023-02-21 13:21] VITALS: RESP 16
[2023-02-21 13:48] VITALS: BP 169/91; PULSE 87
== END ==
LOC: ORWHC2ENDO 11:21
PROVIDERS: ATTEND Internal Medicine Gastroenterology
DX: Z12.11 Encounter for screening for malignant neoplasm of colon (principal); I10 Essential (primary) hypertension; E07.9 Disorder of thyroid, unspecified; Z92.3 Personal history of irradiation; Z85.048 Personal history of other malignant neoplasm of rectum, rectosigmoid junction, and anus; Z91.040 Latex allergy status; Z79.899 Other long term (current) drug therapy; Z88.2 Allergy status to sulfonamides; Z79.890 Hormone replacement therapy
CPT/HCPCS: 45378; J2001; J2704

== ENCOUNTER → 2023-02-23 | Outpatient (CLI) | payer BC ==
--- NOTE | 2023-02-23 12:50 | CT ---
EXAMINATION TYPE: CT ChestAbdPelvis w con DATE OF EXAM: 02/23/2023 COMPARISON: 02/10/2022, 02/02/2021 HISTORY: 62-year-old female C19 NEOPLASM OF RECTOSIGMOID JUNCTION TECHNIQUE: Contiguous axial scanning of the chest, abdomen, and pelvis performed with IV Contrast, pa tient injected with 100 mL of Isovue 300. Delayed images through the kidneys were obtained. Coronal/s agittal reconstructions performed. CT DLP: 576.1 mGycm Automated exposure control for dose reduction was used. FINDINGS: CHEST: The heart is normal size without pericardial effusion. Aorta normal caliber with conventional arch vessel branching anatomy. New 1.6 cm left hilar lymph node. No other thoracic lymphadenopathy by CT size criteria. Minimal emphysematous change. Mild biapical pleural-parenchymal scarring. Unchanged 5 mm and smaller nodularity along the right mid lung compatible with intrafissural lymph nodes. New 7 mm lateral right middle lobe pulmonary nodule, axial extremity 5. New 1.5 cm and 1.1 cm pulmonary nodules anterior left lower lobe, axial image 39 and 41. No consolidation or pleural effusion. ABDOMEN: No focal liver lesion or biliary ductal dilatation. Portal venous system is patent. Gallbladder is collapsed but demonstrates a couple stones measuring 1.3 cm each. Right adrenal gland, right kidney, and pancreas show no gross abnormality. Punctate calcification in the spleen likely a small calcified granuloma. Mild thickening left adrenal gland without discrete no dularity is unchanged. Parapelvic cysts left kidney measuring up to 1 cm. Symmetric uptake and excretion of contrast from john th kidneys. No dilated small bowel, free fluid, or free air. Oral contrast progressed to the hepatic flexure of the colon. Scattered mild to moderate stool in the colon. There is a staple line at the distal rectum from prior resection and reanastomosis. No mesenteric or retroperitoneal lymphadenopathy seen. PELVIS: Bladder urine distended. Uterus anteverted. Neither ovary clearly delineated from adjacent bowel loop s. No abnormal fluid collection in the pelvis or pelvic lymphadenopathy. Bones: Moderate degenerative disc disease L5-S1 with facet arthropathy lower lumbar spine. No osseous destru ctive process. IMPRESSION: 1. A COUPLE PULMONARY NODULES HAVE DEVELOPED IN THE LEFT LOWER LOBE MEASURING 1.5 CM AND 1.1 CM. AN A DDITIONAL 7 MM RIGHT MIDDLE LOBE PULMONARY NODULE HAS DEVELOPED. THERE IS ALSO A NEW 1.6 CM LEFT AIXA R LYMPH NODE. RECURRENT DISEASE SHOULD BE EXCLUDED. 2. STABLE LINE DISTAL SIGMOID FROM PRIOR RESECTION AND RE-ANASTOMOSIS. NO OTHER FINDINGS TO SUGGEST M ETASTATIC DISEASE IN THE ABDOMEN OR PELVIS.
== END | disposition home or self-care (01) ==
LOC: RADCTMAIN 07:24
PROVIDERS: ATTEND Internal Medicine Hematology & Oncology
DX: C19 Malignant neoplasm of rectosigmoid junction (principal)
CPT/HCPCS: 71260; 74177; Q9967

== ENCOUNTER → 2023-03-29 | Outpatient (CLI) | payer BC ==
--- NOTE | 2023-04-02 17:22 | PE ---
EXAMINATION TYPE: PET CT fusion skull to thigh DATE OF EXAM: 03/29/2023 COMPARISON: 02/23/2023 CT chest abdomen pelvis Prior PET/CT: None HISTORY: Colon cancer TECHNIQUE: Following the intravenous administration of 12.07 mCi of F-18 FDG, whole body images are performed from the skull base to the midthigh. Images are reviewed on the computer in the coronal, a xial, and sagittal planes. Reconstructed rotating images are created on independent workstation and reviewed on the computer. A localization and attenuation correction CT is performed in conjunction with the PET scan. DLP: 206.56 mGycm SCAN: Initial Blood glucose: 86 mg/dL Average Mediastinum SUV: 0.62 Average Liver SUV: 2.21 FINDINGS: NECK: No abnormal uptake THORAX: There is some uptake within the subcarina with an SUV of 3.81. Early metastatic disease could be considered. Image 81 There is a large focal area of marked uptake within the left infrahilar region with an SUV of 7.26 co mpatible with metastatic disease. Image 89. There is a punctate nodule with SUV of 4.23 right peripheral lower lung field suspicious for metastat ic disease. Image 95. There is a nodule within the left lung base with an SUV of 6.3 compatible with metastatic disease, im age 89. Second adjacent slightly more inferior nodule has uptake of 4.11, image 106. ABDOMEN: There is focal uptake within the periaortic region image 133, SUV 7.21. There is some adjace nt periaortic uptake measuring 7.17, image 136 PELVIS: No suspicious soft tissue uptake OSSEOUS STRUCTURES: There is intense uptake within the left scapula. Correlate for metastatic disease . SUV 9.95. There is uptake within the right L4 pedicle with an SUV of 8.33 suspicious for metastatic disease. There is a focus of radiotracer within the medial right iliac wing, image 173, SUV 5.3. The re is focal uptake within the sacrum, image 177, SUV 3.36. Uptake at the sacrococcygeal region on the right may be present, image 196, SUV 5.12. LOCALIZATION CT: Cholelithiasis is present COMPARISON: Lung nodules were present on the prior CT. Para-aortic adenopathy is not identified. Osse ous metastasis not clearly identified previously IMPRESSION: 1. Hyperintense uptake within lung nodules compatible with metastatic disease. 2. Suspicion of early metastatic disease within the subcarinal region. 3. Osseous metastasis left scapula, L4 right pedicle, right iliac wing, right sacrum and sacrococcyge al junction
== END | disposition home or self-care (01) ==
LOC: RADPETMAIN 11:38
PROVIDERS: ATTEND Internal Medicine Hematology & Oncology
DX: C79.51 Secondary malignant neoplasm of bone (principal); C19 Malignant neoplasm of rectosigmoid junction; R91.8 Other nonspecific abnormal finding of lung field
CPT/HCPCS: 78815; A9552

== ENCOUNTER → 2023-03-30 | Outpatient (CLI) | payer BC ==
--- NOTE | 2023-03-30 19:28 | BD ---
EXAMINATION TYPE: Axial Bone Density DATE OF EXAM: 03/30/2023 CLINICAL HISTORY: 62 years old Female. ICD-10 CODE: Z12.31 SCR MAMMO Z78.0 ASYMP [place] STATE Height: 61.5 Weight: 127.4 FRAX RISK QUESTIONS: Alcohol (3 or more units per day): no Family History (Parent hip fracture): no Glucocorticoids (More than 3mos): no History of Fracture in Adulthood: no Secondary Osteoporosis: 1. Type 1 Diabetes: no 2. Hyperthyroidism: no 3. Menopause before 45: no 4. Malnutrition: no 5. Chronic liver disease: no Rheumatoid Arthritis: no Current Tobacco Use: no RISK FACTORS HISTORY OF: Hip Fracture (Right/Left): no Spine Fracture: no History of Wrist Fracture: no Surgery to Spine/Hip(right/left)/Wrist (right/left): no Family History of Osteoporosis: no Active: yes Diet low in dairy products/other sources of calcium: no Postmenopausal woman: yes Take estrogen and/or progesterone medications: no Lost more than 2 inches in height since high school: no Frequent falls: no Poor Health: no Hyperparathyroidism: no Adrenal Insufficiency: no MEDICATIONS: Prednisone or other steroids: no Thyroid Medications: Yes How Long: Past year Osteoporosis Medications: no Additional Medications: BP Med, Vit D, Calcium Additional History: Colon Ca. 2020 with Chemo and Radiation EXAM MEASUREMENTS: Bone mineral densitometry was performed using the [employer] System. Bone mineral density as measured about the Lumbar spine is: ----- L1-L4(G/cm2): 1.219 T Score Values are as follows: ----- L1: -0.4 ----- L2: -0.3 ----- L3: 0.7 ----- L4: 0.9 ----- L1-L4: 0.3 Z Score Values are as follows: ----- L1: 1.2 ----- L2: 1.3 ----- L3: 2.3 ----- L4: 2.5 ----- L1-L4: 1.9 Bone mineral density has: increased 0.7 % since study of: 01/31/2021 Bone mineral density about the R hip (g/cm2): 0.965 Bone mineral density about the L hip (g/cm2): 0.934 T Score values are as follows: -----R Neck: -1.3 -----L Neck: -1.6 -----R Total: -0.3 -----L Total: -0.6 Z Score values are as follows: -----R Neck: 0.2 -----L Neck: -0.2 -----R Total: 0.9 -----L Total: 0.6 Bone mineral density has: DECREASED -2.0 % since study of: 01/31/2021 FRAX%s: The graph provided illustrates a 8.8% chance for a major osteoporotic fx and a 0.9% chance fo r the hips probability for fx in 10 years time. IMPRESSION: Osteopenia (T Score between -2.5 and -1). There is slightly increased risk of fracture and the patient may be considered for treatment. Re-Screen 2-5 years. NOTE: T-SCORE=SD OF THE YOUNG ADULT MEAN.
--- NOTE | 2023-04-04 08:46 | MM ---
Reason for Exam: Screening (asymptomatic). Last mammogram was performed 1 year(s) and 1 month(s) ago. Patient History: Menarche at age 13. First Full-Term at age 31. Late child-bearing (after 30). Left ovary removed at age 60. Right ovary removed at age 60. Postmenopausal. Colorectal cancer, age 60. Hormonal Contraceptives, starting at age 35 for 11 years. Mother had breast cancer, age 71. Risk Values: Mary 5 year model risk: 3.1%. NCI Lifetime model risk: 13.5%. Prior Study Comparison: 03/15/2017 Right Diagnostic Mammogram, [facility]. 02/01/2021 Bilateral Screening Mammogram, [facility]. 02/17/2022 Bilateral MG screening mammo w CAD, [facility]. Tissue Density: The breast tissue is heterogeneously dense. This may lower the sensitivity of mammography. Findings: Analyzed By CAD. There is no suspicious group of microcalcifications or new suspicious mass. Overall Assessment: Negative, BI-RAD 1 Management: Screening Mammogram of both breasts in [address] [facility] will attempt to contact patient to return for supplemental views and ultrasound if indicated. Patient should continue monthly self-breast exams. A clinical breast exam by your physician is recommended on an annual basis. This exam should not preclude additional follow-up of suspicious palpable abnormalities. Note on Mary scores and lifetime risk: 1. A Mary score greater than 3% is considered moderate risk. If this is the case, consider specialist referral to assess eligibility for a risk reducing agent. 2. If overall lifetime risk for the development of breast cancer is 20% or higher, the patient may qualify for future screening with alternating mammogram and breast MRI. Electronically signed and approved by: Kaiser Moore DO
== END | disposition home or self-care (01) ==
LOC: RADMAMWWP 08:11
PROVIDERS: ATTEND Family Medicine
DX: Z12.31 Encounter for screening mammogram for malignant neoplasm of breast (principal); M85.89 Other specified disorders of bone density and structure, multiple sites; Z78.0 Asymptomatic menopausal state; Z80.3 Family history of malignant neoplasm of breast
CPT/HCPCS: 77067; 77080

== ENCOUNTER 2023-04-13 11:14 | Day surgery (SDC) | payer BC ==
[2023-04-06 15:35] VITALS: BMI 23.8
[~2023-04-13 11:14] MED LIST changes: +HYDROmorphone 0.5 MG/0.5 ML SYRINGE IVP PRN; +LACTATED RINGERS 1,000 ML IV SCH; -LIDOCAINE 1% INJ 10MG/ML (20 ML MDV) ONE; -PROPOFOL 10 MG/ML 20 ML VIAL IV ONE
--- NOTE | 2023-04-13 11:49 | CT ---
EXAMINATION TYPE: CT chest wo con DATE OF EXAM: 04/13/2023 COMPARISON: Prior CT February 23, 2023 and PET/CT March 29, 2023 HISTORY: pre-bronch CT DLP: 206.1 mGycm. Automated Exposure Control for Dose Reduction was Utilized. TECHNIQUE: CT scan of the thorax is performed without IV contrast. FINDINGS: Exam is for bronchoscopy planning and not for diagnostic purposes. There are persistent two small adj acent nodules are lobulated single nodule in the left lower lobe axial images 209 through 229, former is suspected. Probable near 1 cm lymph node left hilar region axial image 166 is redemonstrated. IMPRESSION: As above.
[2023-04-13] MEDS ORDERED: ONDANSETRON 4 MG/2 ML VIAL ONE (12:04)
[2023-04-13] MEDS ORDERED: DEXAMETHASONE SOD PHOSPHATE 4 MG/ML 1 ML VIAL IVP ONE (12:06)
[2023-04-13] MEDS ORDERED: ONDANSETRON 4 MG/2 ML VIAL IVP ONE (12:06)
[2023-04-13] MEDS ORDERED: PROPOFOL 10 MG/ML 20 ML VIAL IV ONE (12:18)
[2023-04-13] MEDS ORDERED: SUGAMMADEX SODIUM 200 MG/2 ML SDV IV ONE (12:18)
[2023-04-13] MEDS ORDERED: MIDAZOLAM 2 MG/2 ML VIAL ONE (12:18)
[2023-04-13] MEDS ORDERED: ROCURONIUM 10 MG/ML (5 ML VIAL) IV ONE (12:18)
[2023-04-13] MEDS ORDERED: fentaNYL (PF) 50 MCG/ML 2 ML AMP ONE (12:18)
[2023-04-13] MEDS ORDERED: LIDOCAINE 1% INJ 10MG/ML (20 ML MDV) ONE (12:18)
[2023-04-13] MEDS ORDERED: SODIUM CHLORIDE 0.9% 500 ML 500 ML IV ONE (13:15)
--- NOTE | 2023-04-13 13:45 | P.PCN ---
Date of Procedure: 04/13/23 Operative Findings: Preoperative Diagnosis: Left lower lobe opacity Postoperative Diagnosis: Left lower lobe opacity/mass Left hilar lymph node mediastinal lymphadenopathy on endobronchial ultrasound. Procedure(s) Performed: Flexible bronchoscopy Robotic-assisted bronchoscopy and addition to radial ultrasound evaluation of the left lower lobe mass Robotic-assisted transbronchial needle aspirate, transbronchial biopsies of the left lower lobe mass in addition to a bronchioloalveolar lavage Endobronchial ultrasound for mediastinal lymph node evaluation [facility] of the station left hilar lymph nodes Anesthesia: BRENDANA Surgeon: Chris Minaya Estimated Blood Loss (ml): 0 Pathology: other Condition: stable Disposition: same day Operative Findings: A physical exam was performed. Informed consent was obtained from the patient after explaining all the risks (pneumothorax, life threatening bleeding, infection and adverse effects due to medications), benefits and alternatives to the procedure which the patient appeared to understand and so stated. The patient was connected to the monitoring devices. General anesthesia was induced and the patient was intubated by anesthesia. A final timeout was performed and the procedure confirmed by the attending staff bronchoscopist. The bronchoscope was inserted and the airway examined. The flexible bronchoscope was removed and the robotic bronchoscope was inserted. Registration was completed. I next guided the robotic bronchoscope using the navigation system into the left lower lobe pulmonary hilum no 15lateral segment. Once in proper position, the bronchoscope was frozen. The radial EBUS probe was placed through the bronchoscope and confirmed abnormal u/s images vs normal lung. A needle was placed through the working channel and under fluoroscopic guidance, we sampled the area thought to have the mass twice. We then used a cloud biopsy pattern with ultrasound confirmation for 2 additional passes with the needle. U/S evaluation was then used to reconfirm location. Forceps were next introduced through working channel and extended the appropriate distance and 3 transbronchial biopsies were performed using fluoroscopic guidance. The u/s probe was then reinserted to confirm location. When confirmed this process was repeated for a total of 8-10 transbronchial biopsies. After reassessment with EBUS, a brush was placed through the extendable working channel for 1 pass with fluoroscopic guidance. U/S evaluation was then used to confirm location. 40ml of saline was then instilled into the area of the lesion. The robotic bronchoscope was removed and the airway inspected with a flexible bronchoscope and 10 ml of effluent from the BAL was collected. The aspirate was bloody and ultimately declotted and based on that, the sample was discarded. Flex. bronchoscope was inserted and regular suctioning was done. At the completion of the procedure, no residual secretions or bloody material within the airway. The bronchoscope was removed. The patient was extubated. Endobronchial ultrasound was done with mediastinal lymph node evaluation. Her last evaluation of the various mediastinal stations yielded a 13 left hilar lym ph node. Transbronchial needle aspirates of both was done using a 22-gauge vizishot needle. A total of 3 passes were obtained from each station. No complication, endobronchial ultrasound was removed and flexible bronchoscope was reinserted for clearance of the airway, any recurrent secretions. Bronchoscope was removed and the patient was transferred to recovery in stable condition. No complications. FINDINGS: 1.The airways appeared normal 2 Successful navigation, ultrasonographic identification, and biopsies of left lower lobe mass 3.The the radial ultrasound view was (Concentric). RECOMMENDATIONS: Await pathology and cytology results The referring physician will be alerted to the results when available. The patient was advised to follow up with the referring physician with the biopsy results Patient will be called with results.
--- NOTE | 2023-04-13 13:58 | FL ---
EXAMINATION TYPE: FL bronchoscopy DATE OF EXAM: 04/13/2023 COMPARISON: Chest CT earlier today HISTORY: Bronchoscopy TECHNIQUE: Fluoroscopy. FINDINGS: Fluoroscopic guidance was provided during bronchoscopy procedure performed by pulmonologole curran. A total of 5 minutes 56 seconds of fluoroscopic time was utilized during the procedure and 6 spot images was acquired. Total dose area product (DAP) in uGy*m?, mGy*cm? (or similar): 4.7774. IMPRESSION: As Above.
[2023-04-13 14:22] VITALS: TEMP 97.7
[2023-04-13 14:45] VITALS: RESP 16
--- NOTE | 2023-04-13 15:14 | XR ---
EXAMINATION TYPE: XR chest 1V DATE OF EXAM: 04/13/2023 COMPARISON: Chest CT earlier today HISTORY: Lung biopsy. Bronchoscopy. TECHNIQUE: Single frontal upright view of the chest is obtained. FINDINGS: No pneumothorax clearly seen after bronchoscopy with sampling. There is persistent left lo wer lung nodule. Right lung is clear. Cardiac silhouette size remains within normal limits. Osseous s tructures are intact. IMPRESSION: As above.
[2023-04-13 15:33] VITALS: BP 154/81; PULSE 75
== END 2023-04-13 15:34 | disposition home or self-care (01) ==
LOC: ORWHC2ENDO 11:14
PROVIDERS: ATTEND Internal Medicine Critical Care Medicine
DX: C34.32 Malignant neoplasm of lower lobe, left bronchus or lung (principal); I10 Essential (primary) hypertension; E03.9 Hypothyroidism, unspecified; Z87.891 Personal history of nicotine dependence; Z79.899 Other long term (current) drug therapy; Z79.890 Hormone replacement therapy
CPT/HCPCS: 31652; 31654; 88108; 88305; 88342; 88341; 71045; 71250; 31628; 31629; 31623; 31624; J2250; J1100; J2405; J2001; J3010; J2704; S2900

== ENCOUNTER 2023-04-26 11:12 | Day surgery (SDC) | payer BC ==
[~2023-04-26 11:12] MED LIST changes: +ACETAMINOPHEN TAB 500 MG TAB PO PRN; +DEXAMETHASONE SOD PHOSPHATE 4 MG/ML 1 ML VIAL IV ONE; +HEPARIN SODIUM,PORCINE 5,000 UNIT/ML 1 ML VIAL SQ PRN; +LIDOCAINE 1% (10MG/ML) FOR IV START INTRADERMA PRN; +ONDANSETRON 4 MG/2 ML VIAL IVP ONE; +Pre Op ABX Message 1 EACH MISC MISCELLANE ONE; +droPERidol 5 MG/2 ML VIAL IVP ONE
--- NOTE | 2023-04-26 12:11 | P.GSHP ---
History of Present Illness H&P Date: 04/26/23 Chief Complaint: Colon cancer 62-year-old female here for Port-A-Cath placement. Patient previously diagnosed with colon cancer. Recently found to have stage IV disease. Starting chemotherapy shortly. Past Medical History Past Medical History: Cancer, Hypertension, Thyroid Disorder Additional Past Medical History / Comment(s): APR 2023. RECURRENT CANCER Dx. with colon/rectal cancer.2020 History of Any Multi-Drug Resistant Organisms: None Reported Past Surgical History: Adenoidectomy, Bowel Resection, Tonsillectomy Additional Past Surgical History / Comment(s): D&C. BOWEL RESECTION AND OOPHRECTOMY. Epidural pain shots. Sciatica right leg Past Anesthesia/Blood Transfusion Reactions: No Reported Reaction, Motion Sickness Additional Past Anesthesia/Blood Transfusion Reaction / Comment(s): no hx blood transfusion Past Psychological History: No Psychological Hx Reported Smoking Status: Former smoker Past Alcohol Use History: None Reported Additional Past Alcohol Use History / Comment(s): quit smoking >30 yrs ago. Past Drug Use History: None Reported - Past Family History Father Family Medical History: Cancer, Coronary Artery Disease (CAD) Additional Family Medical History / Comment(s): CABG Mother Family Medical History: Cancer Additional Family Medical History / Comment(s): breast CA Medications and Allergies Home Medications Medication Instructions Recorded Confirmed Type Cholecalciferol (Vitamin D3) 125 mcg PO DAILY 04/14/20 04/26/23 History [Vitamin D3] Vitamin C/Biotin [Hair, Skin and 1 tab PO DAILY 04/14/20 04/26/23 History Nails] Cyclobenzaprine [Flexeril] 10 mg PO HS 02/19/23 04/26/23 History Gabapentin 300 mg PO TID 02/19/23 04/26/23 History Levothyroxine Sodium [Synthroid] 50 mcg PO QAM 02/19/23 04/26/23 History lisinopriL [Zestril] 5 mg PO QAM 02/19/23 04/26/23 History Calcium Carbonate/Vitamin D3 1 each PO DAILY 04/06/23 04/26/23 History [Calcium 600 mg-D3 10 Mcg (400 Iu)] Naproxen Sodium [Aleve] 440 mg PO BID 04/06/23 04/26/23 History Acetaminophen Tab [Tylenol Tab] 1,000 mg PO Q6HR 04/13/23 04/26/23 History Allergies Allergy/AdvReac Type Severity Reaction Status Date / Time latex Allergy Itching,leta Verified 04/26/23 11:23 h Sulfa (Sulfonamide Allergy Rash/Hives Verified 04/26/23 11:23 Antibiotics) Surgical - Exam Vital Signs Temp Pulse Resp BP Pulse Ox 98.2 F 85 16 177/81 97 04/26/23 11:32 04/26/23 11:32 04/26/23 11:32 04/26/23 11:32 04/26/23 11:32 Physical exam: General: Well-developed, well-nourished HEENT: Normocephalic, sclerae nonicteric Abdomen: Nontender, nondistended Extremities: No edema Neuro: Alert and oriented Assessment and Plan (1) Colon cancer Narrative/Plan: 62-year-old female with metastatic colon cancer. We'll proceed with Port-A-Cath placement at this time. Risks of bleeding, infection, DVT, pneumothorax, catheter malfunction, anesthesia related complications were discussed. The patient understands and wishes to proceed. Current Visit: No Status: Acute Code(s): C18.9 - MALIGNANT NEOPLASM OF COLON, UNSPECIFIED SNOMED Code(s): 048994673
[2023-04-26] MEDS ORDERED: LIDOCAINE 1% INJ 10MG/ML (20 ML MDV) ONE (12:53)
[2023-04-26] MEDS ORDERED: PROPOFOL 10 MG/ML 20 ML VIAL IV ONE (12:53)
[2023-04-26] MEDS ORDERED: fentaNYL (PF) 50 MCG/ML 2 ML AMP ONE (12:53)
[2023-04-26] MEDS ORDERED: KETOROLAC 15 MG/ML 1 ML VIAL ONE (12:53)
[2023-04-26] MEDS ORDERED: MIDAZOLAM 2 MG/2 ML VIAL ONE (12:53)
[2023-04-26] MEDS ORDERED: PHENYLEPHRINE-0.9% NACL SYG 1,000 MCG/10 ML SYRINGE ONE (12:53)
[2023-04-26] MEDS ORDERED: SODIUM CHLORIDE 0.9% 50 ML with ceFAZolin 1,000 MG IV ONE ×2 (12:58)
[2023-04-26] MEDS ORDERED: ceFAZolin 1,000 MG VIAL ONE (13:10)
[2023-04-26] MEDS ORDERED: SODIUM CHLORIDE 0.9% 100 ML BAG ONE (13:10)
[2023-04-26] MEDS ORDERED: LIDOCAINE 1% INJ 10MG/ML (20 ML MDV) SQ ONE ×2 (13:18)
[2023-04-26] MEDS ORDERED: HYDROmorphone 0.5 MG/0.5 ML SYRINGE IVP PRN (13:46)
[2023-04-26] MEDS ORDERED: HYDROcodone/APAP 5-325MG 1 EACH TAB PO PRN (13:46)
[2023-04-26] MEDS ORDERED: NALOXONE 0.4 MG/ML 1 ML VIAL IV PRN (13:46)
[2023-04-26] MEDS ORDERED: ACETAMINOPHEN TAB 325 MG TAB PO PRN (13:46)
[2023-04-26] MEDS ORDERED: HYDROmorphone 1 MG/ML 1 ML SYRINGE IVP PRN (13:46)
--- NOTE | 2023-04-26 13:53 | P.OP ---
Date of Procedure: 04/26/23 Procedure(s) Performed: PREOPERATIVE DIAGNOSIS: Metastatic colon cancer POSTOPERATIVE DIAGNOSIS: Same PROCEDURE: Port-A-Cath placement with fluoroscopic and ultrasound guidance SURGEON: Radhames EBL: Minimal ANESTHESIA: 5 mL COMPLICATIONS: None OPERATIVE PROCEDURE: Patient was brought and placed on the operative table in the supine position. The patient was placed under general anesthesia at that time. The chest and neck were prepped and draped in usual sterile fashion. The ultrasound probe was used to identify the location of the right internal jugular vein. The skin was localized with lidocaine. The Seldinger needle was advanced into the IJ under ultrasound guidance. The wire was advanced through the needle under fluoroscopic guidance into the superior vena cava. A port pocket was created in the right infraclavicular location through the same prior incision however we moved the catheter slightly inferiorly. The catheter was tunneled from the wire entrance site to the port pocket. The port was then connected to the catheter. The dilator introducer was threaded over the guidewire. The guidewire and dilator were then removed. The catheter was advanced through the introducer and introducer was then removed. The tip was seen to be in the right atrial junction via fluoroscopy. A picture of the radiograph showing the tip of the catheter was taken. Port was flushed with both saline and a Hep-Lock solution. There was good flow both in and out of the port. The port was sutured in underlying tissues using 3-0 silk sutures. The subcutaneous tissues were reapproximated using 3-0 Vicryl sutures and the skin at both locations using 4-0 Monocryl sutures. Skin glue and sterile dressings then applied. DISPOSITION: Stable to recovery room
--- NOTE | 2023-04-26 13:56 | FL ---
EXAMINATION TYPE: FL guided central line placemt DATE OF EXAM: 04/26/2023 CLINICAL HISTORY: Port-A-Cath insertion TECHNIQUE: Fluoroscopy. COMPARISON: None. FINDINGS: Fluoroscopic guidance was provided during procedure performed by Dr. Ricci. A total of 11 seconds of fluoroscopic time was utilized during the procedure and 1 spot images was acquired. Singl e intraoperative image obtained shows right internal jugular Mediport catheter terminating in SVC. IMPRESSION: As Above. TOTAL DAP = 0.75002.
--- NOTE | 2023-04-26 14:07 | XR ---
EXAMINATION TYPE: XR chest 1V confirm line [facility] DATE OF EXAM: 04/26/2023 COMPARISON: Chest x-ray April 13, 2023 HISTORY: Check port TECHNIQUE: Single frontal view of the chest is obtained. FINDINGS: There is new right internal jugular Mediport catheter with tip terminating in SVC. No pneu mothorax is evident after insertion. Lungs remain clear. The cardiac silhouette size remains within normal limits. The osseous structures are intact. IMPRESSION: As above.
[2023-04-26 14:15] VITALS: TEMP 97.4
[2023-04-26 15:02] VITALS: BP 155/78; PULSE 78; RESP 18
== END 2023-04-26 15:10 | disposition home or self-care (01) ==
LOC: OR 11:12
PROVIDERS: ATTEND Surgery
DX: Z45.2 Encounter for adjustment and management of vascular access device (principal); I10 Essential (primary) hypertension; E07.9 Disorder of thyroid, unspecified; Z79.890 Hormone replacement therapy; Z85.048 Personal history of other malignant neoplasm of rectum, rectosigmoid junction, and anus; Z87.891 Personal history of nicotine dependence; Z88.1 Allergy status to other antibiotic agents; Z88.2 Allergy status to sulfonamides; Z91.040 Latex allergy status; Z79.899 Other long term (current) drug therapy
CPT/HCPCS: 77001; 36561; C1788; J2250; J1644; J1100; J2405; J0690; J2001; J3010; J1642; J1885; J2704; J2371

== ENCOUNTER → 2023-07-26 | Outpatient (CLI) | payer BC ==
--- NOTE | 2023-07-26 23:11 | PE ---
EXAMINATION TYPE: PET CT fusion skull to thigh DATE OF EXAM: 07/26/2023 COMPARISON: CT chest 04/13/2023 Prior PET/CT: 03/29/2023 HISTORY: Rectosigmoid cancer TECHNIQUE: Following the intravenous administration of 11.61 mCi of F-18 FDG, whole body images are performed from the skull base to the midthigh. Images are reviewed on the computer in the coronal, a xial, and sagittal planes. Reconstructed rotating images are created on independent workstation and reviewed on the computer. A localization and attenuation correction CT is performed in conjunction with the PET scan. DLP: 219.77 mGycm SCAN: Subsequent Blood glucose: 86 mg/dL Average Mediastinum SUV: 1.74 Average Liver SUV: 2.49 FINDINGS: NECK: No abnormal uptake THORAX: There is a focal area of uptake within the left hilar region. Image 89, SUV 4.41. Metastatic lesion should be considered. Previous SUV 5.42. There is a punctate density within the lateral right mid lung, image 99, SUV 2.52. Previous SUV 4.3. There is a posterior lateral left lower lung field area of increased uptake, image 103, SUV 2.58. Pre vious SUV 5.3 There is increased uptake around the subscapularis on the left. This is markedly diminished from the comparison study. ABDOMEN: No abnormal uptake PELVIS: No abnormal uptake. No suspicious changes suggest recurrent rectosigmoid neoplasm. OSSEOUS STRUCTURES: No abnormal uptake LOCALIZATION CT: Postsurgical changes are in the distal sigmoid colon. No suspicious uptake at this l evel is identified. Gallstone is present COMPARISON: Previous subcarinal uptake appears resolved on the current examination. IMPRESSION: 1. Positive response on persistent nodules left hilar areas of uptake. A subcarinal node appears reso lved. Diminished radiotracer is left shoulder region
== END | disposition home or self-care (01) ==
LOC: RADPETMAIN 08:48
PROVIDERS: ATTEND Internal Medicine Hematology & Oncology
DX: C19 Malignant neoplasm of rectosigmoid junction (principal)
CPT/HCPCS: 78815; A9552

== ENCOUNTER → 2023-11-22 | Outpatient (CLI) | payer BC ==
--- NOTE | 2023-12-20 11:16 | PE ---
Patient: Birdie Cannon Ordering Physician: Unknown, Unknown ID: [id number] Phone, Pager: Phone: N/A Pager: N/A : [phone] Age/Gender: 62Y, F Primary Location: N/A Procedure: PETCT SKULL TO THIGH Kenney yeboah Date: 11/22/2023 10:04:51 AM EXAMINATION TYPE: PET CT fusion skull to thigh DATE OF EXAM: 11/26/2023 CLINICAL INDICATION: Colorectal cancer TECHNIQUE: Following the intravenous administration of 10.82 mCi of F-18 FDG, whole body images are performed from the skull base to the midthigh. Images are reviewed on the computer in the coronal, axial, and sagittal planes. Reconstructed rotating images are created on independent workstation and reviewed on the computer. A non-contrast CT is performed in conjunction with the PET scan. Glucose level 93 mg/dL CT DLP: 278 mGycm, Automated exposure control for dose reduction was used. COMPARISON: CT None, PET/CT 07/26/2023, MRI: None FINDINGS: Mediastinal SUV mean is 1.8. Hepatic parenchyma SUV mean is 3.6. SKULL BASE AND NECK: No suspicious radiotracer activity. CHEST, MEDIASTINUM, AND HILAR REGION: * 8 mm right middle lobe pulmonary nodule similar to prior. Max SUV 3.1, previously 2.5 * Left lower lobe nodule with atelectasis extending away from the also similar measuring 11 mm. Max SUV 2.0, previously 2.8 * Left pulmonary hilum lymph node max SUV 3.4, previously 4.9. ABDOMEN AND PELVIS: No suspicious radiotracer activity. No suspicious FDG activity at the area of the anastomosis in the sigmoid rectal junction. MUSCULOSKELETAL STRUCTURES: Expansile lesion in the left scapula max SUV 5.4, previously 6.3. OTHER CT: Right chest wall [id number] tip terminates in the superior vena cava. Heart is mildly en larged for size. Mild coronary artery atherosclerosis. Cholelithiasis. Moderate amount stool througho ut colon. Postsurgical changes to the sigmoid rectal junction. Right fat-containing inguinal hernia. IMPRESSION: Mild decrease in FDG activity of the left lower lobe nodule, left pulmonary hilum lymph node and left scapula sites of metastatic disease.. Mild increase in FDG activity of the right middle lobe pulmona ry nodule.
== END | disposition home or self-care (01) ==
LOC: RADPETMAIN 09:15
PROVIDERS: ATTEND Internal Medicine Hematology & Oncology
DX: C19 Malignant neoplasm of rectosigmoid junction (principal); C79.51 Secondary malignant neoplasm of bone; R91.1 Solitary pulmonary nodule
CPT/HCPCS: 78815; A9552

== ENCOUNTER → 2024-04-18 | Outpatient (CLI) | payer BC ==
--- NOTE | 2024-04-18 17:57 | PE ---
EXAMINATION TYPE: PET CT fusion skull to thigh DATE OF EXAM: 04/18/2024 CLINICAL INDICATION:Female, 63 years old with history of C19 RECTOSIGMOID; TECHNIQUE: Following the intravenous administration of 11.76 mCi of F-18 FDG, whole body images are performed from the skull base to the midthigh. Images are reviewed on the computer in the coronal, axial, and sagittal planes. Reconstructed rotating images are created on independent workstation and reviewed on the computer. A non-contrast CT is performed in conjunction with the PET scan. Glucose level 87 mg/dL CT DLP: 370.86 mGycm, Automated exposure control for dose reduction was used. COMPARISON: CT 04/13/2023, 02/23/2023, 02/10/2022, PET/CT 12/20/2023, 07/26/2023, 03/29/2023, MRI: None FINDINGS: Mediastinal SUV mean is 1.9. Hepatic parenchyma SUV mean is 2.5. SKULL BASE AND NECK: No suspicious radiotracer activity. CHEST, MEDIASTINUM, AND HILAR REGION: Increased size of right middle lobe solitary pulmonary nodule now measuring to 1.1 cm, previously tonya sured 0.8 cm. Demonstrates a maximum SUV of 4.5, previously 3.1, 2.5. Increased size of left lower lobe 1.4 cm pulmonary nodule, previously measured 1.1 cm. It demonstrate s a maximum SUV of 4.7, previously 2.0, 2.8. ABDOMEN AND PELVIS: No suspicious radiotracer activity. No suspicious FDG activity at the area of the anastomosis in the sigmoid rectal junction. MUSCULOSKELETAL STRUCTURES: Expansile mixed lytic/sclerotic lesion in the left scapula redemonstrated with a maximum SUV of 3.8, previously 5.4, 6.3. Additional new left coracoid process focus of radiotracer activity with a maximum SUV of 6.7. New focus of radiotracer activity with sclerotic appearance in the right T12 posterior elements invol ving the transverse process and pedicle. This demonstrates a maximum SUV of 7.1. New focus of radiotracer activity within the right lateral aspect of the L4 vertebral body with a scl erotic appearance. This demonstrates a maximum SUV of 8.9. New focus of radiotracer activity involving the inferior sacrum with sclerotic appearance. This demon strates a maximal SUV of 4.6. OTHER CT: Right chest wall [id number] tip terminates in the superior vena cava. Heart is mildly en larged for size. Mild coronary artery atherosclerosis. Cholelithiasis. Moderate amount stool througho ut colon. Postsurgical changes to the sigmoid rectal junction. Right fat-containing inguinal hernia. Small fat filled umbilical hernia. IMPRESSION: Overall progression of disease with increased size and FDG activity of previously seen pulmonary nodu les. Mild decrease in FDG activity of left scapular expansile metastatic osseous lesion however there are a few new FDG avid osseous metastasis involving the left coracoid process, T12 right posterior e lements, L4 vertebral body, and the inferior sacrum. [facility], , 04/18/2024 5:54 PM
== END | disposition home or self-care (01) ==
LOC: RADPETMAIN 08:03
PROVIDERS: ATTEND Internal Medicine Hematology & Oncology
DX: C19 Malignant neoplasm of rectosigmoid junction (principal); R91.8 Other nonspecific abnormal finding of lung field; C79.51 Secondary malignant neoplasm of bone; M53.3 Sacrococcygeal disorders, not elsewhere classified
CPT/HCPCS: 78815; A9552